=== PATIENT | male | born 1980 | race African-American/Black ===

== ENCOUNTER → 2017-10-05 | Outpatient (CLI) | payer OTHER ==
--- NOTE | 2017-10-06 16:23 | Diagnostic Imaging Report ---
Exam: Lumbar spine MRI without IV contrast History: Lower right-sided back pain Comparison studies: Lumbar spine MRI 04/12/2016 Technique: Sagittal and axial T2 , sagittal T1 and IR, axial spin density oblique. Intravenous contrast: None Findings: Number of lumbar vertebral bodies: 5. Alignment: Normal lordosis. No scoliosis. Soft tissues: No T2 hyperintense inflammatory changes. Paraspinal muscles: No signal abnormalities. Well-preserved. No atrophic changes Lower thoracic cord: Normal in signal and morphology. The tip of the conus is at T12-L1. Cauda equina: No masses. No arachnoiditis. Vertebrae: No compression fractures, infection or neoplasm. Degenerative changes: L1-L2: No abnormalities L2-L3: Unchanged degenerated disc with loss of disc height and loss of T2 disc signal. Symmetric disc bulge does not result in significant canal or foraminal stenosis L3-L4: New mild loss of T2/STIR disc signal. Symmetric disc bulge not result in significant canal or foraminal stenosis. L4-L5: No abnormalities L5-S1: Moderately degenerated disc with loss of disc height loss of T2 disc signal. Minimal retrolisthesis of L5 on S1 with associated disc osteophyte complex and small left central disc protrusion with unchanged severe left foraminal stenosis and moderate right foraminal stenosis which has increased from the previous exam. Additional findings: IMPRESSION: 1. Degenerative changes at L5-S1 with increase in degree of right foraminal stenosis from mild to moderate with otherwise unchanged moderate disc degeneration, small left central disc protrusion and severe left foraminal stenosis. 2. New mild L3-4 disc degeneration. 3. Unchanged mild L2-L3 disc degeneration. 4. No canal stenosis. Signed by: Dr. Waqas Gaines M.D. on 10/06/2017 4:20 PM
== END ==
LOC: MRI 14:16
PROVIDERS: ATTEND Family Medicine
DX: S39.012A Strain of muscle, fascia and tendon of lower back, initial encounter (principal)
CPT/HCPCS: 72148